=== PATIENT | female | born 1995 | race Caucasian/White ===

== ENCOUNTER 2017-09-13 20:27 | Emergency (ER) | payer BC, OTHER | END 2017-09-14 00:19 | disposition home or self-care (01) | LOC: FTE 09-14 00:19 | DX: L05.01 Pilonidal cyst with abscess (principal); W23.1XXA Caught, crushed, jammed, or pinched between stationary objects, initial encounter; Y92.9 Unspecified place or not applicable | CPT/HCPCS: 99283 ==

== ENCOUNTER 2017-09-19 00:24 | Emergency (ER) | payer BC, OTHER ==
[2017-09-19] MEDS: HYDROCODONE/APAP (10/325) TAB PO (04:44)
[2017-09-19] MEDS: LIDOCAINE 1% (MDV) 20 ML INJ SC (05:15)
== END 2017-09-19 05:58 | disposition home or self-care (01) ==
LOC: FTE 00:24
DX: L05.01 Pilonidal cyst with abscess (principal)
CPT/HCPCS: 10080; 99284-25

== ENCOUNTER 2017-09-23 15:13 | Emergency (ER) | payer BC | END 2017-09-23 17:27 | disposition home or self-care (01) | LOC: FTE 15:13 | DX: Z48.01 Encounter for change or removal of surgical wound dressing (principal); L05.01 Pilonidal cyst with abscess; J45.909 Unspecified asthma, uncomplicated | CPT/HCPCS: 99281 ==